=== PATIENT | female | born 1945 | race Two or more races ===

== ENCOUNTER 2018-11-09 09:37 | Emergency (ER) | payer OTHER ==
[~2018-11-09] VITALS: Ht 152.4 cm; Wt 93.9 kg
[~2018-11-09 09:37] MED LIST: COZAAR50 MG; METFORMIN HCL500 M1; NORVASC5 MG
== END 2018-11-09 15:43 | disposition home or self-care (01) ==
LOC: ER 09:37 → CPU-OBS 09:50 → ER 09:50
DX: R07.89 Other chest pain (principal)

== ENCOUNTER 2019-06-09 17:34 | Emergency (ER) | payer OTHER ==
[~2019-06-09] VITALS: Ht 152.4 cm; Wt 92.1 kg
[2019-06-09] MEDS ORDERED: CRESTOR40 MG PO (18:26)
[2019-06-09] MEDS ORDERED: ASPIR 8181 MG PO (18:26)
[2019-06-09] MEDS ORDERED: ISOSORBIDE MONO30 MG PO (18:26)
[2019-06-09] MEDS ORDERED: ZETIA10 MG PO (18:27)
== END 2019-06-09 21:03 | disposition home or self-care (01) ==
LOC: ER 17:34
DX: M54.42 Lumbago with sciatica, left side (principal); I87.2 Venous insufficiency (chronic) (peripheral)

== ENCOUNTER 2021-10-21 07:13 | Outpatient (CLI) | payer OTHER ==
[~2021-10-21 07:13] MED LIST changes: +ASPIR 8181 MG PO; +CRESTOR40 MG PO; +ISOSORBIDE MONO30 MG PO; +ZETIA10 MG PO
== END 2021-10-21 07:24 | disposition home or self-care (01) ==
LOC: SONOGRAMA 07:13
DX: R10.9 Unspecified abdominal pain (principal)